=== PATIENT | male | born 1995 | race Caucasian/White ===

== ENCOUNTER 2017-04-03 16:14 | Outpatient (CLI) | payer BC ==
[2017-04-03 16:48] LABS: Hematocrit 45.1 % (42.0-52.0); Mean Platelet Volume 7.8 fL (7.4-10.4); Red Blood Cell (RBC) Count 4.77 mill/uL (4.70-6.10); White Blood Cell (WBC) Count 7.4 thou/uL (4.8-10.8)
[2017-04-03 16:55] LABS: PTT 27.9 SEC (22.9-36.1); Prothrombin Time 14.8 SEC (12.0-14.7)
[2017-04-03 17:10] LABS: Anion Gap 15 mmol/L (10-20); BUN (Urea Nitrogen) 14 mg/dL (8.9-20.6); Calc. Creatinine Clearance 0 mL/min (70-130); Calcium 9.9 mg/dL (7.8-10.44); Carbon Dioxide 24 mmol/L (22-29); Chloride 103 mmol/L (98-107); Estimated GFR-MDRD Greater than 90
== END 2017-04-03 16:15 | disposition home or self-care (01) ==
LOC: LABBT 16:14
PROVIDERS: ATTEND Surgery
DX: Z01.818 Encounter for other preprocedural examination (principal); M51.16 Intervertebral disc disorders with radiculopathy, lumbar region
CPT/HCPCS: 80048; 85027; 85610; 85730

== ENCOUNTER 2017-04-04 09:42 | Day surgery (SDC) | payer BC ==
[2017-04-03 16:26] VITALS: BMI 25.0
[2017-04-04] MEDS ORDERED: Albumin 5% 500 ML ONE (10:52)
[2017-04-04] MEDS ORDERED: Phenylephrine 10 MG/NS 250 ML 250 ML ONE (10:52)
[2017-04-04] MEDS ORDERED: Bacitracin Zinc Ointment 30 gm TUBE ONE (11:46)
[2017-04-04] MEDS ORDERED: Thrombin 5000 UNITS/5 ML VIAL ONE (11:46)
[2017-04-04] MEDS ORDERED: Sodium Chloride 0.9% 10 ML ONE (11:46)
[2017-04-04] MEDS ORDERED: Midazolam HCl 2 mg/2 ml Vial ONE (12:39)
[2017-04-04] MEDS ORDERED: Fentanyl 100 MCG/2 ML VIAL ONE ×2 (12:57→14:13)
[2017-04-04] MEDS ORDERED: Meperidine HCl/PF 25 MG/ML VIAL SLOW IVP PRN (15:44)
[2017-04-04] MEDS ORDERED: Morphine Sulfate 2 MG/ML SYRINGE SLOW IVP PRN ×2 (15:44→16:08)
[2017-04-04] MEDS ORDERED: Promethazine HCl 25 MG/ML VIAL SLOW IVP PRN (15:44)
[2017-04-04] MEDS ORDERED: Promethazine HCl 25 MG/ML VIAL IM PRN ×2 (15:44→16:08)
[2017-04-04] MEDS ORDERED: HYDROmorphone 2 MG/ML VIAL SLOW IVP PRN (15:44)
[2017-04-04] MEDS ORDERED: Ondansetron HCl/PF 4 MG/2 ML Vial IVP PRN (15:44)
[2017-04-04] MEDS ORDERED: Acetaminophen/Codeine 30-300mg Tablet PO PRN (16:08)
[2017-04-04] MEDS ORDERED: Milk Of Magnesia 30 ML UDCUP PO PRN (16:08)
[2017-04-04] MEDS ORDERED: Acetaminophen 325 MG TAB PO PRN (16:08)
[2017-04-04] MEDS ORDERED: Bisacodyl 10 MG SUPP PR PRN (16:08)
[2017-04-04] MEDS ORDERED: Fleet Enema 133 ML BOT PR PRN (16:08)
[2017-04-04] MEDS ORDERED: Mag-Al 1200 mg/1200 mg/30 ML UDCUP PO PRN (16:08)
[2017-04-04] MEDS ORDERED: HYDROcodone/Acetaminophen 7.5/325 mg Tablet PO PRN (16:08)
[2017-04-04] MEDS: tiZANidine HCl 4 MG TAB PO PRN ×2 (17:45→23:34)
--- NOTE | 2017-04-04 20:25 | OP ---
OR: 12. WOUND TYPE: Type 1 wound. SURGEON: Antony Mcclain M.D. EVAPORATOR SUPERVISOR: Merrick Hill PA-C. PREPROCEDURE DIAGNOSES: Low back and bilateral lower extremity pain with L4-L5 disk extrusion, bila teral L5 nerve root compression. POSTPROCEDURE DIAGNOSES: Low back and bilateral lower extremity pain with L4-L5 disk extrusion, martina ateral L5 nerve root compression. PROCEDURE PERFORMED: 1. L4-L5 laminectomy, partial facetectomy, foraminotomy with L4-L5 diskectomy. 2. Use of operative microscope for microdissection. DESCRIPTION OF PROCEDURE: After informed consent was obtained from the patient, the patient was bro ught to OR 12. Proper patient pause and identification was carried out. He was placed under excell ent general endotracheal anesthesia and positioned prone on the operating table. All appropriate po ints were padded. We identified the midline L4-L5 segment. This area was sterilely prepped and efraín ped. Proper patient pause and identification was carried out. The wound was then opened with a com bination of sharp, monopolar and blunt dissection, and the L4 and L5 dorsal spines of lamina were ex posed. Localization film confirmed our area of interest. We then performed an L4-L5 laminectomy, p artial facetectomy, and foraminotomies over the L4 and L5 nerve roots. We then brought the microsco pe and working over the shoulder of the left L5 nerve root, identified the extruded disk material. This was removed. I also explored the right L5 nerve and bilateral stenosis and somewhat eccentric to the left central disk extrusion. Multiple disk fragments were removed. Copious irrigation occur red throughout the wound with maximal hemostasis throughout. The wound was then closed in anatomic layers following the sprinkling of vancomycin powder. The patient then emerged from anesthesia.
[2017-04-04] MEDS: traMADol HCl 50 MG TAB PO PRN (21:04)
[2017-04-04] MEDS: Sodium Chloride 0.9% 1,000 ML IV SCH (21:05)
[2017-04-05] MEDS: traMADol HCl 50 MG TAB PO PRN (05:41)
[2017-04-05] MEDS: Sodium Chloride 0.9% 1,000 ML IV SCH (05:41)
[2017-04-05] MEDS ORDERED: Lisdexamfetamine Dimesylate [Vyvanse] 30 MG PO SCH (09:00)
[2017-04-05 10:04] VITALS: BP 111/58; TEMP 98.5
--- NOTE | 2017-04-05 11:05 | PRG ---
DATE OF SERVICE: 04/05/2017 SUBJECTIVE: Mr. Stewart is postoperative day 1 from L4-L5 laminectomy and diskectomy. He states he has had resolution of his leg pain. He has excellent strength throughout his lower extremity myoto mes and he is doing well in regard to his postoperative care. We went over intraoperative and posto perative issues and I would be fine with dismissal today. Follow up is arranged.
== END 2017-04-05 12:40 | disposition home or self-care (01) ==
LOC: SDC 09:42 → SURG A 16:08 → SDC 04-05 12:40
PROVIDERS: ATTEND Surgery
PROC: 00NY0ZZ Release Lumbar Spinal Cord, Open Approach (ICD-10-PCS; principal; 2017-04-05)
DX: M51.26 Other intervertebral disc displacement, lumbar region (principal); Z98.890 Other specified postprocedural states
CPT/HCPCS: 76001; 93005; 93010; 96374; A4216; J1170; J2250; J2270; J3010; J3370; J3490; P9045